=== PATIENT | female | born 1955 | race Caucasian/White ===

== ENCOUNTER 2018-06-26 18:29 | Emergency (ER) | END 2018-06-26 20:56 | disposition home or self-care (01) ==

== ENCOUNTER 2018-06-28 13:33 | Emergency (ER) | END 2018-06-28 18:29 | disposition home or self-care (01) ==

== ENCOUNTER 2019-02-11 20:42 | Emergency (ER) | payer OTHER ==
[~2019-02-11] VITALS: Ht 167.6 cm; Wt 65.0 kg
[~2019-02-11 20:42] MED LIST: AMLO-147 PO; ASPI81TA52 PO; DIPH50CA30 PO; DONE10TA7 PO; HALO5TAB23 PO; MEMA5TAB PO; METF100010 PO; ZOLP10TA5 PO
[2019-02-11 20:50] VITALS: Ht 167.6 cm; Wt 65.0 kg
[2019-02-11] MEDS ORDERED: NITROFURANTOIN (SR) 100 MG CAP PO ONE (22:00)
[2019-02-11] MEDS ORDERED: NITR-58 PO (22:43)
--- NOTE | 2019-02-11 22:49 | ERD ---
ER Documentation Chief Complaint Chief Complaint bib ra from [facility], flank pain, HPI Patient is a 63-year-old female with a history of dementia who presents with flank pain. Please note the history and physical exam is limited secondary to the patient being nonverbal at baseline. The patient was brought in by ambulance. Medics report that she was having right-sided flank pain. Upon review of old medical records this is the patient's third visit to the ER since 2018. Review of the emergency department information exchange system shows visits to 2 separate emergency departments for a total of 4 visits over the past 1 year. I cannot obtain history otherwise. ROS All systems reviewed and are negative except as per history of present illness. Medications Home Meds Active Scripts Nitrofurantoin Monohyd Macrocr* (Macrobid*) 100 Mg Capsr, 100 MG PO BID for 7 Days, CAP Prov:CONY ECHEVERRIA MD 02/11/19 Reported Medications Haloperidol* (Haldol*) 5 Mg Tab, 5 MG PO BID, TAB 06/28/18 Metformin Hcl* (Metformin Hcl*) 1,000 Mg Tablet, 1000 MG PO WITH BREAKFAST DINNE, #60 TAB 06/28/18 Memantine* (Namenda*) 5 Mg Tablet, 5 MG PO BID, #60 TAB 06/28/18 Donepezil* (Donepezil*) 10 Mg Tablet, 10 MG PO DAILY, #30 TAB 06/28/18 Aspirin (Low Dose Aspirin) 81 Mg Tablet.dr, 81 MG PO DAILY, #30 TAB 06/28/18 Zolpidem Tartrate* (Zolpidem Tartrate*) 10 Mg Tablet, 10 MG PO QHS PRN for INSOMNIA, #30 TAB 06/28/18 Amlodipine Besylate* (Amlodipine Besylate*) 10 Mg Tablet, 10 MG PO DAILY, #30 TAB 18 Diphenhydramine Hcl (BANOPHEN) 50 Mg Capsule, 50 MG PO QHS, CAP 06/28/18 Allergies Allergies: Coded Allergies: No Known Allergy (Unverified , 06/28/18) PMhx/Soc History of Surgery: No (UNK) Anesthesia Reaction: No Hx Neurological Disorder: Yes (DEMENTIA, CVA) Hx Respiratory Disorders: No Hx Cardiac Disorders: Yes (HTN) Hx Psychiatric Problems: No Hx Miscellaneous Medical Probl: Yes (DM ) Hx Alcohol Use: No (UNK) Hx Substance Use: No (UNK) Hx Tobacco Use: No (UNK) Smoking Status: Unknown if ever smoked FmHx Unable to obtain Physical Exam Vitals Vital Signs Date Temp Pulse Resp B/P (MAP) Pulse Ox O2 O2 Flow FiO2 Time Delivery Rate 02/11/19 70 20 149/79 97 Room Air 21:55 (102) 02/11/19 98.7 89 19 139/80 100 20:50 (99) Physical Exam Const: No acute distress Head: Atraumatic Eyes: Normal Conjunctiva ENT: Normal External Ears, Nose and Mouth. Neck: Full range of motion. No meningismus. Resp: Clear to auscultation bilaterally Cardio: Regular rate and rhythm, no murmurs Abd: Soft, non tender, non distended. Normal bowel sounds Skin: No petechiae or rashes Back: No midline or flank tenderness Ext: No cyanosis, or edema Neur: Awake, nonverbal at baseline Result Diagram: 02/11/19 2100 02/11/19 2100 Results 24 hrs Laboratory Tests Test 02/11/19 21:00 02/11/19 21:07 White Blood Count 9.5 10^3/ul Red Blood Count 4.30 10^6/ul Hemoglobin 13.2 g/dl Hematocrit 39.3 % Mean Corpuscular Volume 91.4 fl Mean Corpuscular Hemoglobin 30.7 pg Mean Corpuscular Hemoglobin Concent 33.6 g/dl Red Cell Distribution Width 12.4 % Platelet Count 319 10^3/UL Mean Platelet Volume 8.7 fl Immature Granulocytes % 0.300 % Neutrophils % 70.5 % Lymphocytes % 19.6 % Monocytes % 8.9 % Eosinophils % 0.2 % Basophils % 0.5 % Nucleated Red Blood Cells % 0.0 /100WBC Immature Granulocytes # 0.030 10^3/ul Neutrophils # 6.7 10^3/ul Lymphocytes # 1.9 10^3/ul Monocytes # 0.9 10^3/ul Eosinophils # 0.0 10^3/ul Basophils # 0.1 10^3/ul Nucleated Red Blood Cells # 0.0 10^3/ul Urine Color YELLOW Urine Clarity CLEAR Urine pH 8.0 Urine Specific [place] 1.014 Urine Ketones NEGATIVE mg/dL Urine Nitrite NEGATIVE mg/dL Urine Bilirubin NEGATIVE mg/dL Urine Urobilinogen NEGATIVE mg/dL Urine Leukocyte Esterase 1+ Tom/ul Urine Microscopic RBC 1 /HPF Urine Microscopic WBC 8 /HPF Urine Bacteria FEW /HPF Urine Hemoglobin NEGATIVE mg/dL Urine Glucose NEGATIVE mg/dL Urine Total Protein NEGATIVE mg/dl Sodium Level 137 mmol/L Potassium Level 4.5 mmol/L Chloride Level 99 mmol/L Carbon Dioxide Level 27 mmol/L Anion Gap 11 Blood Urea Nitrogen 15 mg/dl Creatinine 0.57 mg/dl Est Glomerular Filtrat Rate mL/min > 60 mL/min Glucose Level 163 mg/dl Calcium Level 9.6 mg/dl Total Bilirubin 0.8 mg/dl Direct Bilirubin 0.00 mg/dl Indirect Bilirubin 0.8 mg/dl Aspartate Amino Transf (AST/SGOT) 77 IU/L Alanine Aminotransferase (ALT/SGPT) 46 IU/L Alkaline Phosphatase 74 IU/L Total Protein 7.5 g/dl Albumin 4.1 g/dl Globulin 3.40 g/dl Albumin/Globulin Ratio 1.20 Lipase 293 U/L Bedside Glucose 149 mg/dL Current Medications Medications Dose Sig/Tashia Start Time Status Last (Trade) Ordered Route PRN Stop Time Admin Dose Reason Admin 100 mg ONCE ONCE 02/11/19 DC 02/11/19 Nitrofurantoi PO 22:00 21:53 n 02/11/19 22:01 Macrocrystals (Macrobid) Procedures/MDM CT abdomen pelvis read by radiology. Patient is a 63-year-old female with dementia who presents with complaint of flank pain. There is no obvious pain at this time. CT scan shows no obvious signs of obstruction or surgical process. Laboratory studies are basically normal. There is a mild cystitis and the patient will be treated with Macrobid for 1 week course. First dose of Macrobid was given in the emergency department. Patient will be discharged back to the living facility and will need to follow-up with the primary doctor within 24 to 48 hours. Patient can return sooner for any worsening symptoms. Departure Diagnosis: Primary Impression: Cystitis Additional Impression: Flank pain Condition: Fair Patient Instructions: Cystitis, Flank Pain, Uncertain Cause Referrals: Your doctor Additional Instructions: Call your primary care doctor TOMORROW for an appointment during the next 1-2 days.See the doctor sooner or return here if your condition worsens before your appointment time. CONY ECHEVERRIA MD Feb 11, 2019 22:49
[2019-02-11 23:50] VITALS: BP 116/65; PULSE 61; RESP 18
== END 2019-02-12 00:07 | disposition home or self-care (01) ==
LOC: E/R 20:42
DX: N30.90 Cystitis, unspecified without hematuria (principal); I10 Essential (primary) hypertension; E11.9 Type 2 diabetes mellitus without complications; Z79.84 Long term (current) use of oral hypoglycemic drugs; Z79.82 Long term (current) use of aspirin; Z86.73 Personal history of transient ischemic attack (TIA), and cerebral infarction without residual deficits
CPT/HCPCS: 36415; 74176; 80053; 81001; 82962; 83690; 85025; Z7502; Z7610

== ENCOUNTER 2019-02-15 13:37 | Emergency (ER) | payer OTHER ==
[~2019-02-15] VITALS: Wt 61.0 kg
[~2019-02-15 13:37] MED LIST changes: +NITR-58 PO
--- NOTE | 2019-02-15 13:42 | ERD ---
ER Documentation Chief Complaint Chief Complaint Possible abdominal pain HPI The patient is a 63-year-old female, presenting to the ER because of possible abdominal pain according to the caregiver. She comes from assisted living. She was seen recently about 4 days ago for acute cystitis and had a negative abdominal pelvic CT. She is unable to provide any history, the history obtained from wrapper hand and medical record Past medical history: Dementia, diabetes mellitus, hypertension, history of CVA Past surgical history: Hysterectomy Social history/review of system: Unable to obtain due to her condition Medications Home Meds Reported Medications [place] Carbonate* ([place] Carbonate*) 300 Mg Tablet, 150 MG PO DAILY, TAB 02/15/19 Metformin Hcl* (Metformin Hcl*) 1,000 Mg Tablet, 1000 MG PO WITH BREAKFAST DINNE, #60 TAB 02/15/19 Zolpidem Tartrate* (Zolpidem Tartrate*) 10 Mg Tablet, 10 MG PO QHS PRN for INSOMNIA, #30 TAB 02/15/19 Memantine* (Namenda*) 5 Mg Tablet, 5 MG PO DAILY, #30 TAB 02/15/19 Donepezil* (Donepezil*) 10 Mg Tablet, 10 MG PO DAILY, #30 TAB 02/15/19 Amlodipine Besylate* (Amlodipine Besylate*) 10 Mg Tablet, 10 MG PO DAILY, #30 TAB 02/15/19 Metoprolol Tartrate* (Lopressor*) 50 Mg Tab, 50 MG PO DAILY, #60 TAB 02/15/19 Cholecalciferol (Vitamin D3) 5,000 Unit Tablet, 5000 UNIT PO DAILY, TAB 02/15/19 Hydrochlorothiazide* (Hydrochlorothiazide*) 25 Mg Tab, 25 MG PO DAILY, #30 TAB 02/15/19 Discontinued Reported Medications Haloperidol* (Haldol*) 5 Mg Tab, 5 MG PO BID, TAB 06/28/18 Metformin Hcl* (Metformin Hcl*) 1,000 Mg Tablet, 1000 MG PO WITH BREAKFAST DINNE , #60 TAB 06/28/18 Memantine* (Namenda*) 5 Mg Tablet, 5 MG PO BID, #60 TAB 06/28/18 Donepezil* (Donepezil*) 10 Mg Tablet, 10 MG PO DAILY, #30 TAB 06/28/18 Aspirin (Low Dose Aspirin) 81 Mg Tablet.dr, 81 MG PO DAILY, #30 TAB 06/28/18 Zolpidem Tartrate* (Zolpidem Tartrate*) 10 Mg Tablet, 10 MG PO QHS PRN for INSOM TIM, #30 TAB 06/28/18 Amlodipine Besylate* (Amlodipine Besylate*) 10 Mg Tablet, 10 MG PO DAILY, #30 TAB 06/28/18 Diphenhydramine Hcl (BANOPHEN) 50 Mg Capsule, 50 MG PO QHS, CAP 06/28/18 Discontinued Scripts Nitrofurantoin Monohyd Macrocr* (Macrobid*) 100 Mg Capsr, 100 MG PO BID for 7 Days, CAP Prov:CONY ECHEVERRIA MD 02/11/19 Allergies Allergies: Coded Allergies: No Known Allergy (Unverified , 02/15/19) PMhx/Soc History of Surgery: No (UNK) Anesthesia Reaction: No Hx Neurological Disorder: Yes (DEMENTIA, CVA) Hx Respiratory Disorders: No Hx Cardiac Disorders: Yes (HTN) Hx Psychiatric Problems: No Hx Miscellaneous Medical Probl: Yes (DM ) Hx Alcohol Use: No (UNK) Hx Substance Use: No (UNK) Hx Tobacco Use: No (UNK) Physical Exam Vitals Vital Signs Date Temp Pulse Resp B/P (MAP) Pulse Ox O2 O2 Flow FiO2 Time Delivery Rate 02/15/19 98.5 92 18 138/89 98 14:18 (105) 02/15/19 98.5 93 18 139/89 98 Room Air 14:01 (106) 02/15/19 98.5 88 18 134/90 98 13:46 (105) Physical Exam Const: No acute distress. Head: Atraumatic. Eyes: Normal Conjunctiva. ENT: Normal External Ears, Nose and Mouth. Neck: Full range of motion. No meningismus. Resp: Clear to auscultation bilaterally. Cardio: Regular rate and rhythm. Abd: Soft, non distended, normal bowel sounds, non tender. Skin: No petechiae or rashes. Back: No midline or flank tenderness. Ext: No cyanosis, or edema. Neur: Awake and alert. No focal deficit Psych: Normal Mood and Affect. Result Diagram: 02/15/19 1356 02/15/19 1356 Results 24 hrs Laboratory Tests Test 02/15/19 13:56 02/15/19 15:01 White Blood Count 12.2 10^3/ul Red Blood Count 4.67 10^6/ul Hemoglobin 14.2 g/dl Hematocrit 42.3 % Mean Corpuscular Volume 90.6 fl Mean Corpuscular Hemoglobin 30.4 pg Mean Corpuscular Hemoglobin Concent 33.6 g/dl Red Cell Distribution Width 12.4 % Platelet Count 324 10^3/UL Mean Platelet Volume 8.8 fl Immature Granulocytes % 0.400 % Neutrophils % 82.5 % Lymphocytes % 10.6 % Monocytes % 6.2 % Eosinophils % 0.1 % Basophils % 0.2 % Nucleated Red Blood Cells % 0.0 /100WBC Immature Granulocytes # 0.050 10^3/ul Neutrophils # 10.1 10^3/ul Lymphocytes # 1.3 10^3/ul Monocytes # 0.8 10^3/ul Eosinophils # 0.0 10^3/ul Basophils # 0.0 10^3/ul Nucleated Red Blood Cells # 0.0 10^3/ul Sodium Level 137 mmol/L Potassium Level 3.6 mmol/L Chloride Level 101 mmol/L Carbon Dioxide Level 28 mmol/L Anion Gap 8 Blood Urea Nitrogen 16 mg/dl Creatinine 0.63 mg/dl Est Glomerular Filtrat Rate mL/min > 60 mL/min Glucose Level 245 mg/dl Calcium Level 9.7 mg/dl Total Bilirubin 0.6 mg/dl Direct Bilirubin 0.00 mg/dl Indirect Bilirubin 0.6 mg/dl Aspartate Amino Transf (AST/SGOT) 84 IU/L Alanine Aminotransferase (ALT/SGPT) 65 IU/L Alkaline Phosphatase 89 IU/L Total Protein 7.2 g/dl Albumin 4.1 g/dl Globulin 3.10 g/dl Albumin/Globulin Ratio 1.32 Lipase 190 U/L Bedside Urine pH (LAB) 5.5 Bedside Urine Protein (LAB) 1+ Bedside Urine Glucose (UA) Negative Bedside Urine Ketones (LAB) 1+ Bedside Urine Blood Trace-intact Bedside Urine Nitrite (LAB) Negative Bedside Urine Leukocyte Esterase (L Trace Procedures/MDM MEDICAL MAKING DECISION: The patient is a 63-year-old female, presenting with possible abdominal pain, however the abdominal exam is unremarkable, she is well in the emergency department and is stable for outpatient follow-up The differential diagnoses considered include but are not limited to cholelithiasis, cholecystitis, choledocholithiasis, cholangitis, pancreatitis, hepatitis, gastritis, peptic ulcer disease, gastric ulcer, appendicitis, cystitis, diverticulitis, partial small bowel obstruction. Departure Diagnosis: Primary Impression: Recent urinary tract infection Condition: Good Comments She is advised to continue the antibiotic I discussed the findings with the patient. I advised the patient to follow-up with the primary physician in about 2-3 days, sooner if needed and return if any concern. Disclaimer: Inadvertent spelling and grammatical errors are likely due to EHR/dictation software use and do not reflect on the overall quality of patient care. Also, please note that the electronic time recorded on this note does not necessarily reflect the actual time of the patient encounter. CAROL PAZ MD Feb 15, 2019 13:42
[2019-02-15] MEDS ORDERED: CHOL500010 PO (14:20)
[2019-02-15] MEDS ORDERED: HYDR25TA6 PO (14:20)
[2019-02-15] MEDS ORDERED: METO-429 PO (14:22)
[2019-02-15] MEDS ORDERED: AMLO-147 PO (14:22)
[2019-02-15] MEDS ORDERED: DONE10TA7 PO (14:23)
[2019-02-15] MEDS ORDERED: MEMA5TAB PO (14:23)
[2019-02-15] MEDS ORDERED: ZOLP10TA5 PO (14:24)
[2019-02-15] MEDS ORDERED: METF100010 PO (14:24)
[2019-02-15] MEDS ORDERED: LITH300T5 PO (14:25)
[2019-02-15 19:31] VITALS: BP 148/91; PULSE 81; RESP 21
== END 2019-02-15 19:37 | disposition home or self-care (01) ==
LOC: E/R 13:37
DX: N39.0 Urinary tract infection, site not specified (principal); E11.9 Type 2 diabetes mellitus without complications; I10 Essential (primary) hypertension; Z86.73 Personal history of transient ischemic attack (TIA), and cerebral infarction without residual deficits; Z79.84 Long term (current) use of oral hypoglycemic drugs
CPT/HCPCS: 36415; 80053; 81003; 83690; 85025; P9612; Z7502; 99283

== ENCOUNTER 2019-03-31 14:47 | Emergency (ER) | payer OTHER ==
[~2019-03-31] VITALS: Ht 167.6 cm; Wt 61.4 kg
[~2019-03-31 14:47] MED LIST changes: +CHOL500010 PO; -DIPH50CA30 PO; -HALO5TAB23 PO; +HYDR25TA6 PO; +LITH300T5 PO; +LTH150C PO; +METO-429 PO; -NITR-58 PO
[2019-03-31 15:12] VITALS: BP 117/59; PULSE 63; RESP 16; Ht 167.6 cm; Wt 61.4 kg
--- NOTE | 2019-03-31 20:09 | ERD ---
ER Documentation Chief Complaint Chief Complaint hospice spiritual care coordinator reports dry skin on bilateral heels; hx stroke, DM HPI 63-year-old female brought in by caregivers from her board and care facility due to bilateral feet with what look like early pressure wounds. They went to her primary care doctor yesterday to discuss some muscle spasms she was having which have resolved. Patient has dementia and is unable to provide any history. No other symptoms per the caregivers. She has not been complaining of anything. ROS All systems reviewed and are negative except as per history of present illness. Medications Home Meds Reported Medications [place] Carbonate* ([place]*) 150 Mg Cap, 150 MG PO QID, CAP 03/31/19 Metoprolol Tartrate* (Lopressor*) 50 Mg Tab, 50 MG PO BID, #60 TAB 03/31/19 Aspirin (Low Dose Aspirin) 81 Mg Tablet.dr, 81 MG PO DAILY, #30 TAB 03/31/19 Metformin Hcl* (Metformin Hcl*) 1,000 Mg Tablet, 1000 MG PO WITH BREAKFAST DINNE, #60 TAB 02/15/19 Zolpidem Tartrate* (Zolpidem Tartrate*) 10 Mg Tablet, 10 MG PO QHS PRN for INSOMNIA, #30 TAB 02/15/19 Memantine* (Namenda*) 5 Mg Tablet, 5 MG PO DAILY, #30 TAB 02/15/19 Hydrochlorothiazide* (Hydrochlorothiazide*) 25 Mg Tab, 25 MG PO DAILY, #30 TAB 02/15/19 Discontinued Reported Medications [place] Carbonate* ([place] Carbonate*) 300 Mg Tablet, 150 MG PO DAILY, TAB 02/15/19 Donepezil* (Donepezil*) 10 Mg Tablet, 10 MG PO DAILY, #30 TAB 02/15/19 Amlodipine Besylate* (Amlodipine Besylate*) 10 Mg Tablet, 10 MG PO DAILY, #30 TAB 02/15/19 Metoprolol Tartrate* (Lopressor*) 50 Mg Tab, 50 MG PO DAILY, #60 TAB 02/15/19 Cholecalciferol (Vitamin D3) 5,000 Unit Tablet, 5000 UNIT PO DAILY, TAB 02/15/19 Allergies Allergies: Coded Allergies: No Known Allergy (Unverified , 03/31/19) PMhx/Soc Medical and Surgical Hx: Unable to obtain History of Surgery: No (UNK) Anesthesia Reaction: No Hx Neurological Disorder: Yes (DEMENTIA, CVA) Hx Respiratory Disorders: No Hx Cardiac Disorders: Yes (HTN) Hx Psychiatric Problems: No Hx Miscellaneous Medical Probl: Yes (DM ) Hx Alcohol Use: No (UNK) Hx Substance Use: No (UNK) Hx Tobacco Use: No (UNK) FmHx Unable to obtain Physical Exam Vitals Vital Signs Date Temp Pulse Resp B/P (MAP) Pulse Ox O2 O2 Flow FiO2 Time Delivery Rate 03/31/19 97.1 63 16 117/59 98 15:12 (78) Physical Exam Const: No acute distress Head: Atraumatic Eyes: Normal Conjunctiva ENT: Normal External Ears, Nose and Mouth. Neck: Full range of motion. No meningismus. Resp: Clear to auscultation bilaterally Cardio: Regular rate and rhythm, no murmurs Abd: Soft, non tender, non distended. Normal bowel sounds Skin: No petechiae or rashes Back: No midline or flank tenderness Ext: No cyanosis, trace pedal edema bilaterally. No erythema noted. Bilateral heels with small areas of pressure related subcutaneous hematomas with no evidence of infection or ulceration. 2+ DP and PT pulses bilaterally. Neur: Awake and alert Psych: Normal Mood and Affect Procedures/MDM Patient is presenting with likely pressure wounds to bilateral feet. There is no ulceration at this time. Recommended talking to her primary care doctor tomorrow to get a referral to a cart driver. This is not an emergency and does not require admission. Caregivers understand discharge plan. They were also provided with the number to social work, and they can call in the daytime if they need any further assistance. Patient discharged in a stable condition. Departure Diagnosis: Primary Impression: Nontraumatic hematoma of skin and subcutaneous tissue Additional Impression: Pressure ulcer, heel Pressure injury stage: stage 1 Laterality: unspecified laterality Qualified Codes: L89.601 - Pressure ulcer of unspecified heel, stage 1 Condition: Stable Patient Instructions: Treating Pressure Ulcers of the Foot Additional Instructions: She will need to be referred to a cart driver by her primary care doctor to take care of the problem with her feet. Please call the primary care doctor to obtain this referral. TARUN BYRD MD Mar 31, 2019 20:09
== END 2019-03-31 20:30 | disposition home or self-care (01) ==
LOC: E/R 14:47
DX: L98.8 Other specified disorders of the skin and subcutaneous tissue (principal); L89.601 Pressure ulcer of unspecified heel, stage 1
CPT/HCPCS: 99282

== ENCOUNTER 2019-04-29 11:45 | Inpatient (IN) | payer OTHER ==
[~2019-04-29] VITALS: Ht 160 cm; Wt 65.0 kg
[~2019-04-29 11:45] MED LIST changes: +ACET325T33 PO; +HALO10TA PO; +LAMO25TA8 PO; -LITH300T5 PO; +LORA1TAB PO; +MENT71OI TP; +NITR100C7 PO; +OLAN2.5T28 PO
[2019-04-29] MEDS ORDERED: ONDANSETRON 4 MG INJ IV PRN ×2 (15:00→16:30)
[2019-04-29] MEDS ORDERED: ACETAMINOPHEN 325 MG TAB PO PRN ×2 (15:00→16:30)
[2019-04-29] MEDS ORDERED: SOD CHLORIDE 0.9% 100 ML ONE (15:26)
[2019-04-29] MEDS ORDERED: IOHEXOL 300MG/ML 150 ML BTL ONE (15:26)
[2019-04-29] MEDS ORDERED: HYDROCODONE/APAP (5/325) TAB PO PRN (16:30)
[2019-04-29] MEDS ORDERED: NACL 0.9% 3 ML SYG IV SCH (16:30)
[2019-04-29] MEDS ORDERED: morphine 2 MG INJ IV PRN (16:30)
[2019-04-29] MEDS ORDERED: hydrALAzine 20 MG INJ IV PRN (16:30)
[2019-04-29] MEDS ORDERED: GLUCOSE GEL 15 GRAM TUBE BUCCAL PRN (17:00)
[2019-04-29] MEDS ORDERED: DEXTROSE 50% 50 ML SYRINGE IV PRN ×2 (17:00)
[2019-04-29] MEDS: INSULIN ASPART [NOVOLOG] 3 ML PEN SC SCH ×2 (17:00→21:00)
[2019-04-29] MEDS ORDERED: GLUCAGON 1 MG INJ IM PRN (17:00)
[2019-04-29] MEDS ORDERED: GLUCOSE GEL 15 GRAM TUBE PO PRN ×2 (17:00)
[2019-04-29] MEDS: D5W-0.45 NACL + KCL 20 MEQ 1,000 ML IV SCH (18:36)
[2019-04-29 19:00] VITALS: BP 113/60; PULSE 60; RESP 18
[2019-04-29 19:28] VITALS: BP 141/71; PULSE 54; RESP 18
[2019-04-29 20:30] VITALS: Ht 160 cm; Wt 65.0 kg
[2019-04-29 23:46] VITALS: BP 133/60; PULSE 47; RESP 21
[2019-04-30] MEDS: INSULIN ASPART [NOVOLOG] 3 ML PEN SC SCH ×6 (01:00→21:18)
[2019-04-30] MEDS ORDERED: ACCU-CHEK XX SCH (02:00)
[2019-04-30 03:49] VITALS: BP 127/69; PULSE 59; RESP 22
[2019-04-30] MEDS: D5W-0.45 NACL + KCL 20 MEQ 1,000 ML IV SCH ×2 (05:54→19:10)
[2019-04-30 07:25] VITALS: BP 96/58; PULSE 48; RESP 22
[2019-04-30 11:48] VITALS: BP 110/60; PULSE 53; RESP 22
[2019-04-30 15:38] VITALS: BP 136/65; PULSE 49; RESP 22
[2019-04-30] MEDS ORDERED: OLANZAPINE 2.5 MG TAB PO PRN (16:00)
[2019-04-30 18:58] VITALS: BP 138/67; PULSE 62; RESP 18
[2019-04-30] MEDS: LITHIUM CARBONATE 150 MG CAP PO SCH (20:58)
[2019-04-30 23:38] VITALS: BP 123/65; RESP 18
[2019-05-01 03:39] VITALS: BP 107/69; PULSE 60; RESP 18
[2019-05-01 07:27] VITALS: BP 96/61; PULSE 52; RESP 22
[2019-05-01] MEDS: LITHIUM CARBONATE 150 MG CAP PO SCH ×3 (08:20→21:01)
[2019-05-01] MEDS: D5W-0.45 NACL + KCL 20 MEQ 1,000 ML IV SCH ×2 (08:20→22:52)
[2019-05-01] MEDS: INSULIN ASPART [NOVOLOG] 3 ML PEN SC SCH ×4 (08:22→20:50)
[2019-05-01 11:13] VITALS: BP 134/60; PULSE 52; RESP 22
[2019-05-01] MEDS: LAMOTRIGINE 25 MG TAB PO SCH ×2 (12:29→21:02)
[2019-05-01 19:37] VITALS: BP 144/67; PULSE 60; RESP 18
[2019-05-02] VITALS: BP 116/65; PULSE 63; RESP 18
[2019-05-02 03:56] VITALS: BP 114/69; PULSE 53; RESP 18
[2019-05-02 07:31] VITALS: BP 121/69; PULSE 48; RESP 22
[2019-05-02] MEDS: INSULIN ASPART [NOVOLOG] 3 ML PEN SC SCH ×2 (07:55→12:22)
[2019-05-02] MEDS: LAMOTRIGINE 25 MG TAB PO SCH (08:56)
[2019-05-02] MEDS: LITHIUM CARBONATE 150 MG CAP PO SCH ×2 (08:56→12:29)
[2019-05-02 11:53] VITALS: BP 124/63; PULSE 59; RESP 16
[2019-05-02] MEDS: D5W-0.45 NACL + KCL 20 MEQ 1,000 ML IV SCH (12:18)
== END 2019-05-02 13:23 | disposition home or self-care (01) | DRG 917 ==
LOC: E/R 11:45 → TEL 14:44
PROVIDERS: ADMIT Internal Medicine; ATTEND Internal Medicine
DX: T42.8X1A Poisoning by antiparkinsonism drugs and other central muscle-tone depressants, accidental (unintentional), initial encounter (principal); G92 Toxic encephalopathy; F31.62 Bipolar disorder, current episode mixed, moderate; F03.90 Unspecified dementia, unspecified severity, without behavioral disturbance, psychotic disturbance, mood disturbance, and anxiety; T43.4X1A Poisoning by butyrophenone and thiothixene neuroleptics, accidental (unintentional), initial encounter; T42.8X5A Adverse effect of antiparkinsonism drugs and other central muscle-tone depressants, initial encounter; R41.82 Altered mental status, unspecified; G24.9 Dystonia, unspecified; E11.9 Type 2 diabetes mellitus without complications; I10 Essential (primary) hypertension; F09 Unspecified mental disorder due to known physiological condition; S00.11XA Contusion of right eyelid and periocular area, initial encounter; W19.XXXA Unspecified fall, initial encounter; Y93.89 Activity, other specified; Y92.019 Unspecified place in single-family (private) house as the place of occurrence of the external cause; Y99.8 Other external cause status; Z79.82 Long term (current) use of aspirin; Z79.84 Long term (current) use of oral hypoglycemic drugs
CPT/HCPCS: 36415; 70450; 70491; 71045; 80048; 80053; 80178; 80307; 81003; 82607; 82962; 83036; 83605; 83735; 84100; 84436; 84443; 84479; 85025; 86592; 86803; 87081; 87340; 92610; 93005; 97161; J1815; J3480; Q9967